=== PATIENT | male | born 1950 | race Caucasian/White ===

== ENCOUNTER 2017-03-22 12:09 | Day surgery (SDC) | payer MEDICARE, BC ==
[~2017-03-22] VITALS: Ht 185.4 cm; Wt 97.3 kg
[2017-03-22 12:50] VITALS: BP 132/82; PULSE 74; TEMP 98.3
[2017-03-22] MEDS ORDERED: ASPIRIN 81M81 MG/TA2 PO (12:52)
[2017-03-22] MEDS ORDERED: CIALIS2.5 MG PO (12:52)
[2017-03-22] MEDS ORDERED: NORCO 325 MG-7.1 TAB PO (15:59)
[2017-03-22 16:04] VITALS: BP 116/71; PULSE 79
[2017-03-22 16:19] VITALS: BP 124/68; PULSE 73
[2017-03-22 16:34] VITALS: BP 112/73; PULSE 71
[2017-03-22 16:49] VITALS: BP 101/75; PULSE 75
[2017-03-22 17:04] VITALS: BP 120/70; PULSE 74
== END 2017-03-22 17:45 | disposition home or self-care (01) ==
LOC: SDCO 12:09
DX: K40.91 Unilateral inguinal hernia, without obstruction or gangrene, recurrent (principal); E78.5 Hyperlipidemia, unspecified; K21.9 Gastro-esophageal reflux disease without esophagitis; Z80.8 Family history of malignant neoplasm of other organs or systems; M19.90 Unspecified osteoarthritis, unspecified site; Z85.828 Personal history of other malignant neoplasm of skin
CPT/HCPCS: C1781; J0690; J1100; J1885; J2250; J2405; J2704; J3010; J7120

== ENCOUNTER 2018-02-28 10:33 | Day surgery (SDC) | payer MEDICARE, BC ==
[2018-02-28] VITALS (7 sets, daily range): BP systolic 122–129; BP diastolic 62–83; PULSE 64–70; TEMP 98.2–98.3
[~2018-02-28] VITALS: Ht 185.4 cm; Wt 98.2 kg
[~2018-02-28 10:33] MED LIST: ASPIRIN 81M81 MG/TA2 PO; CIALIS2.5 MG PO; NORCO 325 MG-7.1 TAB PO
[2018-02-28] MEDS ORDERED: NORCO 325 MG-51 TAB PO (16:24)
== END 2018-02-28 19:28 | disposition home or self-care (01) ==
LOC: SDCO 10:33
DX: K40.91 Unilateral inguinal hernia, without obstruction or gangrene, recurrent (principal); E78.5 Hyperlipidemia, unspecified; N52.9 Male erectile dysfunction, unspecified; Z79.899 Other long term (current) drug therapy; K21.9 Gastro-esophageal reflux disease without esophagitis
CPT/HCPCS: A4314; C1781; J0690; J1100; J1885; J2405; J2704; J2710; J3010; J7120